=== PATIENT | female | born 1960 | race Caucasian/White ===

== ENCOUNTER → 2020-08-16 | Outpatient (CLI) | payer BC ==
[~2020-08-16] MED LIST: BENTYL 20MG TAB20 MG PO; OMNICEF 300 MG300 MG PO; PREDNISONE20 MG PO; PYRIDIUM100 MG PO; ZOFRAN ODT 4 MG4 MG GT; ZOFRAN ODT 4 MG4 MG SL; ZOFRAN4 MG PO
== END ==
LOC: HEART 5 11:52
DX: J45.40 Moderate persistent asthma, uncomplicated (principal); R10.9 Unspecified abdominal pain; J01.90 Acute sinusitis, unspecified; J06.9 Acute upper respiratory infection, unspecified; J30.9 Allergic rhinitis, unspecified; D64.9 Anemia, unspecified; R94.2 Abnormal results of pulmonary function studies
CPT/HCPCS: 94060; 95012